=== PATIENT | female | born 1970 | race Caucasian/White ===

== ENCOUNTER 2016-10-21 02:47 | Emergency (ER) | payer MEDICAID ==
[2016-10-21] MEDS ORDERED: ONDANSETRON 4 MG/2 ML VIAL IVP ONE (02:54)
[2016-10-21] MEDS ORDERED: HYDROmorphONE/DILAUDID 1 MG/ML SYR IVP ONE (02:54)
[2016-10-21] MEDS ORDERED: NS 1,000 ML IV ONE (02:54)
[2016-10-21] MEDS ORDERED: IOPAMIDOL (ISOVUE-300) 100 ML BTL ONE (03:02)
--- NOTE | 2016-10-21 03:04 | EDPHY ---
H & P Source: Patient, EMS HPI/ROS: HPI CHIEF COMPLAINT: Fall 10 feet, suicidal ideation HISTORY OF PRESENT ILLNESS: this patient 46-year-old female significant past medical history for bipolar disorder, she [facility] by EMS after she fell off the 2nd balcony inside the alf according to staff and EMS she landed on the couch 10 feet below. After landing on the couch below she got up and ran through into the kitchen to try to find a knife. She was unable located knife to stab herself. The kitchen doors were locked at the alf. She then laid supine on the kitchen floor. Police had to make contact with her and breakdown 2 doors to get to her. She presents to the emergency room with pain all over she states she has pain from head to toe. Everywhere according to EMS palpated she had pain. Unclear LOC. Unclear if she hit the ground. Per EMS, it was reported to them that she fell 10 feet over the balcony onto a couch below. She tells me she was running from staff she was trying to find knife to stab herself. Was unable to locate a knife. Upon arrival to the emergency room I did Greet her in ER room 5. She had a head to toe trauma exam back and front. There is no visible trauma on exam but patient has tenderness to palpation down C,T, and L-spine. Tenderness palpation of the abdomen. Tender palpation the chest wall. And tender palpation down her extremities I do not see any significant trauma externally. She also tells me she has a headache. She has a GCS 15. She is alert and orient x4. Telling me she has pain all over. Police are at bedside and are placing her on M1 hold for suicidal ideation. She denies ingestion. It is noted the review of systems and history is somewhat limited due to patient's compliance with exam. At time she refuses to move extremities and then moves them. And anywhere you palpate she is tender throughout her entire body front and back. It is also reported to me, when EMS arrived they did placed a nasal trumpet in her airway as she was lying supine and not moving. She immediately pulled out the nasal trumpet. However would not respond EMS. Past Medical History: Bipolar disorder Past Surgical History: denies surgical history Social History: denies use of drugs alcohol tobacco products Family History: noncontributory ROS REVIEW OF SYSTEMS: limited due to patient's presentation of clinical state. Exam Constitutional GCS 15, alert and orient x4, in rigid cervical collar, moves everything,triage nursing summary reviewed, vital signs reviewed, awake/alert. Eyes normal conjunctivae and sclera, EOMI, PERRLA. HENT normal inspection, atraumatic, moist mucus membranes, no epistaxis, neck supple/ no meningismus, no raccoon eyes. Respiratory clear to auscultation bilaterally, normal breath sounds, no respiratory distress, no wheezing. Cardiovascular rate normal, regular rhythm, no murmur, no edema, distal pulses normal. Gastrointestinal soft, non-tender, no rebound, no guarding, normal bowel sounds, no distension, no pulsatile mass. Genitourinary no CVA tenderness. Musculoskeletal tender palpation down her anterior chest, abdomen, extremities throughout, front and back. Tender palpation down C-spine T-spine and L-spine no step-offs or crepitus, tender palpation over the CVA regions bilaterally, tender palpation over the both scapular regions. Again no signs of trauma crepitus. no midline vertebral tenderness, full range of motion, no calf swelling, no tenderness of extremities, no meningismus, good pulses, neurovascularly intact. Skin no signs of trauma on exam,pink, warm, & dry, no rash, skin atraumatic. Neurologic Moves all 4 extremities, awake, alert and oriented x 3, AAOx3, moves all 4 extremities equally, motor intact, sensory intact, CN II-XII intact , normal cerebellar, normal vision, normal speech. Psychiatric normal mood/affect. Heme/Lymph/Immune no lymphadenopathy. Differential Diagnosis: Includes but is not limited to in a particular order fall with 10 feet, multiple contusions soft tissue injury, chest wall trauma, intra-abdominal trauma, cervical spine trauma, closed head injury, thoracic or lumbar spine injury, extremity injury. Plan for this patient given that she has pain all over and is not a good historian with very limited review of systems and tender palpation diffusely front impact throughout her entire body with a fall over 10 feet I will do a CT scan of her head, cervical spine chest abdomen pelvis T and L-spine to rule out significant life-threatening trauma. She is on M1 hold by [employer]. After she is cleared from a traumatic injury. She will need mental health evaluation. Re-evaluation: 0402AM: Patient is back from CT at this time. This time she is shaking back and forth in bed. I did go and assess her, she is not having a seizure she is not postictal. When you ask her to stop shaking she does. She is conversive. She is asking for us "to kill her" "I want to " CT scan of the Head without IV contrast for trauma. The results of the study are Negative for acute traumatic injury. The study was read by Dr. Maciel I viewed the images myself on the PACS system. CT scan of the cervical spine without IV contrast. The results of the study are negative for acute traumatic in The study was read by Dr. Maciel. I viewed the images myself on the PACS system. CT scan of the chest abdomen pelvis were trauma with IV contrast The results of the study are 3.6 cm dilated aorta, no dissection or rupture, large fibroid, otherwise no acute traumatic injury The study was read by Dr. Maciel. I viewed the images myself on the PACS system. 0420AM: patient is resting comfortably at this time no acute distress. I did explain the patient when she arrived here that due to having pain throughout her entire body very severe with palpation and screaming and yelling when we palpate down her C-spine T-spine and L-spine as well as her chest wall on abdomen this is going to require CT imaging she understands that and is okay with that. She understands that she is complaining of pain throughout her entire body and fell 10 feet. Clinically on exam there is no evidence of external trauma but patient complains of severe debilitating pain throughout her entire body. Unclear if she is truly really injured or malingering. I explained that given the amount of pain she is having throughout her entire body and fall over 10 feet will need to image her which includes CT scan which includes radiation she understands this. 0421AM: She is now back from CT resting comfortably. Is notified to me by Dr. Maciel that her CT scan imaging is unremarkable for acute trauma. Was able to clear his cervical spine as her C-spine is negative she has no midline pain at this time. She is now medically cleared she is on M1 hold. She will need mental health evaluation due to being suicidal. Is also noted multiple times when I enter the room she asked me to "kill her" I explained that we will try to help her and get mental health evaluation for her. She does have a history of bipolar it is unclear what medication she takes the history is Limited. Additionally I have notified the patient that her CT scan of her chest shows a dilated aorta. She understands that this followed with her primary care doctor. Additional I did notify her that she has a very large fibroid. Follow up outpatient with OBGYN. 0433: At this time this patient is medically cleared. Do not feel that is Trauma surgery needs to see her she has unremarkable trauma exam as well as no traumatic injury seen on CT scan. Stable vital signs. 0502AM: Patient is asking for ice chips. We have provided this for her. She is asking for ibuprofen which we also provided. She ambulated well from room 5 to ER room 18. She is medically cleared except for drug screen. (Bhavin Simental) Constitutional: Initial Vital Signs Temperature (C) 36.9 C 10/21/16 02:47 Heart Rate 84 10/21/16 02:47 Respiratory Rate 18 10/21/16 02:47 Blood Pressure 124/90 H 10/21/16 02:47 O2 Sat (%) 96 10/21/16 02:47 O2 Delivery Mode Room Air Allergies/Adverse Reactions: No Known Allergies Allergy (Unverified 10/21/16 07:04) Medical Decision Making - Diagnostics Imaging Results: Imaging Impressions Abdomen CT 10/21/16 02:54 Impression: 1. CT of the abdomen and pelvis negative for acute posttraumatic sequela. 2. Large fundal mass consistent with a uterine fibroid. Further evaluation to be considered as clinically directed. 3. Lumbar spine negative for fracture with degenerative changes noted. The study was performed as an emergency on-call case and discussed by telephone with Dr. Simental at 0420 hours. The final interpretation is concordant with the original communication. Cervical Spine CT 10/21/16 02:54 Impression: Negative noncontrast CT of the head with no intracranial posttraumatic sequela identified. CT Cervical Spine Without Contrast History: Trauma. Technique: Multislice helical CT through the cervical spine without contrast from the skull base to T1. Soft tissue and bone evaluation is performed. Sagittal and coronal reconstructions are obtained and reviewed. Dose reduction techniques were utilized. Findings: Cervical alignment is anatomic. No fracture or dislocation is identified. The relationship between skull base and C1 is normal. The C1-C2 articulation is normal. The odontoid process is normal. The cervical thoracic junction is normal. Soft tissue window evaluation does not show evidence of epidural or prevertebral hematoma. Mild degenerative changes are noted with disk space loss and minimal bony hypertrophic changes extending from C3-C4 to C5-C6. Impression: 1. Negative for fracture. 2. Degenerative changes are noted. The study was performed as an emergency on-call case and discussed by telephone with Dr. Hawthorne at 0 410 hours. The final interpretation is concordant with the original communication. Chest CT 10/21/16 02:54 Impression: 1. The chest is negative for acute posttraumatic sequela. 2. Thoracic spine negative for fracture with mild multilevel degenerative changes noted. 3. See above report for additional findings. The study was performed as an emergency on-call case and discussed by telephone with Dr. Hawthorne at 0 410 hours. The final interpretation is concordant with the original communication. Head CT 10/21/16 02:54 Impression: Negative noncontrast CT of the head with no intracranial posttraumatic sequela identified. CT Cervical Spine Without Contrast History: Trauma. Technique: Multislice helical CT through the cervical spine without contrast from the skull base to T1. Soft tissue and bone evaluation is performed. Sagittal and coronal reconstructions are obtained and reviewed. Dose reduction techniques were utilized. Findings: Cervical alignment is anatomic. No fracture or dislocation is identified. The relationship between skull base and C1 is normal. The C1-C2 articulation is normal. The odontoid process is normal. The cervical thoracic junction is normal. Soft tissue window evaluation does not show evidence of epidural or prevertebral hematoma. Mild degenerative changes are noted with disk space loss and minimal bony hypertrophic changes extending from C3-C4 to C5-C6. Impression: 1. Negative for fracture. 2. Degenerative changes are noted. The study was performed as an emergency on-call case and discussed by telephone with Dr. Hawthorne at 0 410 hours. The final interpretation is concordant with the original communication. Lumbar Spine CT 10/21/16 02:55 Impression: 1. CT of the abdomen and pelvis negative for acute posttraumatic sequela. 2. Large fundal mass consistent with a uterine fibroid. Further evaluation to be considered as clinically directed. 3. Lumbar spine negative for fracture with degenerative changes noted. The study was performed as an emergency on-call case and discussed by telephone with Dr. Simental at 0420 hours. The final interpretation is concordant with the original communication. Thoracic Spine CT 10/21/16 02:55 Impression: 1. The chest is negative for acute posttraumatic sequela. 2. Thoracic spine negative for fracture with mild multilevel degenerative changes noted. 3. See above report for additional findings. The study was performed as an emergency on-call case and discussed by telephone with Dr. Hawthorne at 0 410 hours. The final interpretation is concordant with the original communication. ED Course/Re-evaluation: I assumed care of this patient at [address] Simental. Patient was seen by [facility]. She continues to respond to external stimuli and expressed suicidal ideation. She will be admitted to the hospital. During my shift she was stable and received ibuprofen for complaints of pain. Patient's care was assumed by Dr. Biggs at 4:00 p.m. We continue to await placement. (Marylu Bradshaw) Differential Diagnosis: Differential diagnosis of the patient's altered mental status and depression was considered including but not limited to functional and major depression, situational depression, hypothyroidism, medication side effect, drugs and alcohol abuse, chronic psychosis, medication noncompliance, medication side effect, depression and illicit drug use. (Marylu Bradshaw) - Data Points Laboratory Results: Laboratory Results 10/21/16 02:50 10/21/16 02:50 10/21/16 07:13 Urine Color KIMBERLYN Urine Appearance CLEAR Urine pH 5.0 (5.0-7.5) Ur Specific [place] > 1.035 H (1.002-1.030) Urine Protein 2+ H (NEGATIVE) Urine Ketones NEGATIVE (NEGATIVE) Urine Blood 3+ H (NEGATIVE) Urine Nitrate NEGATIVE (NEGATIVE) Urine Bilirubin NEGATIVE (NEGATIVE) Urine Urobilinogen NEGATIVE EU EU (0.2-1.0) Ur Leukocyte Esterase NEGATIVE (NEGATIVE) Urine RBC 3-5 /hpf H /hpf (0-3) Urine WBC 15-25 /hpf H /hpf (0-3) Ur Epithelial Cells 1+ /lpf /lpf (NONE-1+) Urine Glucose NEGATIVE (NEGATIVE) Urine Opiates Screen NEGATIVE (NEGATIVE) Urine Barbiturates NEGATIVE (NEGATIVE) Ur Phencyclidine Scrn NEGATIVE (NEGATIVE) Ur Amphetamine Screen NEGATIVE (NEGATIVE) U Benzodiazepines Scrn NEGATIVE (NEGATIVE) Urine Cocaine Screen NEGATIVE (NEGATIVE) U Marijuana (THC) Screen NON-NEGATIVE H (NEGATIVE) Medications Given: Discontinued Medications Acetaminophen (Tylenol) 650 mg PO EDNOW ONE Stop: 10/21/16 07:03 Last Admin: 10/21/16 07:03 Dose: 650 mg Hydromorphone HCl (Dilaudid) 0.5 mg IVP EDNOW ONE Stop: 10/21/16 02:55 Last Admin: 10/21/16 04:04 Dose: Not Given Sodium Chloride (Ns) 1,000 mls @ 0 mls/hr IV ONCE ONE; Wide Open PRN Reason: Protocol Stop: 10/21/16 02:55 Last Admin: 10/21/16 03:19 Dose: 1,000 mls Ibuprofen (Motrin) 600 mg PO EDNOW ONE Stop: 10/21/16 05:02 Last Admin: 10/21/16 05:09 Dose: 600 mg Ibuprofen (Motrin) 600 mg PO EDNOW ONE Stop: 10/21/16 11:29 Last Admin: 10/21/16 12:26 Dose: 600 mg Olanzapine (Zyprexa Zydis) 10 mg PO EDNOW ONE Stop: 10/21/16 05:10 Last Admin: 10/21/16 05:09 Dose: 10 mg Ondansetron HCl (Zofran) 4 mg IVP EDNOW ONE Stop: 10/21/16 02:55 Last Admin: 10/21/16 04:05 Dose: Not Given Departure - Departure Disposition: Other Psych, Not Luis Alberto Clinical Impression: Multiple contusions, Suicidal ideation Fall Qualifiers: Encounter type: initial encounter Qualified Code(s): W19.XXXA - Unspecified fall, initial encounter Condition: Fair Additional Instructions: 1. On your CT scan today did notice that your aorta is slightly enlarged 3.6 cm. Please follow up with her primary care doctor about this to have this monitored. 2. Additionally you had a very large fibroid in your uterus. She should follow up with OBGYN about this. Referrals: Patient,NotPresent [Unknown] - As per Instructions
[2016-10-21 03:06] LABS: % IMMATURE GRANULYOCYTES 0.3 % (0.0-1.1); ABSOLUTE IMMATURE GRANULOCYTES 0.03 10^3/uL (0.00-0.10); ADD DIFF? NO; ADD MORPH? NO; ADD SCAN? NO; ATYPICAL LYMPHOCYTE FLAG 10 (0-99); FRAGMENT RBC FLAG 0 (0-99); HEMATOCRIT 44.3 % (38.0-47.0); HEMOGLOBIN 15.2 g/dL (12.6-16.3); LEFT SHIFT FLG 0 (0-99); LIPEMIA HEMOLYSIS FLAG 90 (0-99); MEAN CELL HEMOGLOBIN 31.3 pg (27.9-34.1); MEAN CELL HEMOGLOBIN CONCENTR. 34.3 g/dL (32.4-36.7); MEAN CELL VOLUME 91.3 fL (81.5-99.8); PLATELET CLUMPS FLAG 10 (0-99); PLATELET COUNT 353 10^3/uL (150-400); RED BLOOD CELL COUNT 4.85 10^6/uL (4.18-5.33); RED CELL DISTRIBUTION WIDTH 14.4 % (11.5-15.2)
[2016-10-21 03:15] LABS: INR 1.02 (0.83-1.16); PROTIME(PATIENT) 13.3 SEC (12.0-15.0)
[2016-10-21 03:17] LABS: ANION GAP 13 mEq/L (8-16); CALCIUM 10.5 mg/dL (8.5-10.4); CARBON DIOXIDE 19 mEq/l (22-31); CHLORIDE 109 mEq/L (97-110); ETHANOL SERUM < 10 mg/dL (0-10); GLOMERULAR FILTRATION RATE 59; GLUCOSE 176 mg/dL (70-100); POTASSIUM 3.8 mEq/L (3.5-5.2); SODIUM 141 mEq/L (134-144)
[2016-10-21] MEDS ORDERED: IBUPROFEN 600 MG TAB PO ONE ×4 (05:01→18:25)
[2016-10-21] MEDS ORDERED: OLANZapine DISINTEGR 10 MG TAB ONE (05:07)
[2016-10-21] MEDS ORDERED: OLANZapine DISINTEGR 10 MG TAB PO ONE (05:09)
[2016-10-21] MEDS ORDERED: ACETAMINOPHEN 325 MG TAB ONE (06:46)
[2016-10-21] MEDS ORDERED: ACETAMINOPHEN 325 MG TAB PO ONE (07:02)
[2016-10-21 08:15] LABS: COLOR AMBER; LEUKOCYTE ESTERASE,URINE NEGATIVE (NEGATIVE); NITRITE,URINE NEGATIVE (NEGATIVE)
[2016-10-21 08:20] LABS: WBC,URINE 15-25 /hpf (0-3)
[2016-10-21 08:33] VITALS: RESP 16
[2016-10-21 18:25] VITALS: BP 110/78; PULSE 74; TEMP 97.2; O2SAT 96
== END 2016-10-21 18:34 ==
DX: T14.8 Other injury of unspecified body region (principal); T14.91 Suicide attempt; E86.9 Volume depletion, unspecified; W13.0XXA Fall from, out of or through balcony, initial encounter
CPT/HCPCS: 80305; G0480; J1170; J2405; Q9967

== ENCOUNTER 2016-11-04 22:32 | Emergency (ER) | payer MEDICAID ==
[2016-11-04 22:45] VITALS: TEMP 97.5
--- NOTE | 2016-11-04 23:02 | EDPHY ---
H & P Stated Complaint: fall 10/21 and injuried l leg Time Seen by Provider: 11/04/16 22:52 HPI/ROS: CHIEF COMPLAINT: Left leg pain HISTORY OF PRESENT ILLNESS: The patient is a 46-year-old homeless female who states that she tried to kill herself 2 weeks ago and jumped off of "a high place". She states that she landed on her lower back but has had mild left lower leg pain ever since. The pain is just to her proximal lateral shirley. She describes mild swelling and bruising as well. She has been ambulatory for the last 2 weeks. She denies low back pain. She states that she has been walking a lot and sleeping in the senior living. REVIEW OF SYSTEMS: Constitutional: denies: chills, fever, recent illness, recent injury EENTM: denies: blurred vision, double vision, nose congestion Respiratory: denies: cough, shortness of breath Cardiac: denies: chest pain, irregular heart rate, lightheadedness, palpitations Gastrointestinal/Abdominal: denies: abdominal pain, diarrhea, nausea, vomiting, blood streaked stools Genitourinary: denies: dysuria, frequency, hematuria, pain Musculoskeletal: See HPI Skin: denies: lesions, rash, jaundice, bruising Neurological: denies: headache, numbness, paresthesia, tingling, dizziness, weakness Hematologic/Lymphatic: denies: blood clots, easy bleeding, easy bruising Immunologic/allergic: denies: HIV/AIDS, transplant EXAM: GENERAL: Well-appearing, well-nourished and in no acute distress. HEAD: Atraumatic, normocephalic. EYES: Pupils equal round and reactive to light, extraocular movements intact, sclera anicteric, conjunctiva are normal. ENT: TMs normal, nares patent, oropharynx clear without exudates. Moist mucous membranes. NECK: Normal range of motion, supple without lymphadenopathy or JVD. LUNGS: Breath sounds clear to auscultation bilaterally and equal. No wheezes rales or rhonchi. HEART: Regular rate and rhythm without murmurs, rubs or gallops. ABDOMEN: Soft, nontender, normoactive bowel sounds. No guarding, no rebound. No masses appreciated. BACK: No CVA tenderness, no spinal tenderness, step-offs or deformities EXTREMITIES: No visible swelling to left leg. Patient points to proximal lateral shirley near the head of the fibula as the source of her pain. Minimal bruising to the anterior shirley. Normal ambulation. Normal range of motion, no pitting or edema. No clubbing or cyanosis. NEUROLOGICAL: Cranial nerves II through XII grossly intact. Normal speech, normal gait. 5/5 strength, normal movement in all extremities, normal sensation PSYCH: Normal mood, normal affect. SKIN: Warm, dry, normal turgor, no visible rashes or lesions. Source: Patient Exam Limitations: No limitations - Personal History LMP (Females 10-55): Now Current Tetanus/Diphtheria Vaccine: No Current Tetanus Diphtheria and Acellular Pertussis (TDAP): No - Medical/Surgical History Hx Asthma: Yes Hx Chronic Respiratory Disease: Yes Hx Diabetes: No Hx Cardiac Disease: No Hx Renal Disease: No Hx Cirrhosis: No Hx Alcoholism: No Hx HIV/AIDS: No Hx Splenectomy or Spleen Trauma: No Other PMH: BIPOLAR - Family History Significant Family History: No pertinent family hx - Social History Smoking Status: Current every day smoker Alcohol Use: Sober Drug Use: Marijuana Constitutional: Initial Vital Signs Temperature (C) 36.4 C 11/04/16 22:40 Heart Rate 88 11/04/16 22:40 Respiratory Rate 18 11/04/16 22:40 Blood Pressure 142/90 H 11/04/16 22:40 O2 Sat (%) 97 11/04/16 22:40 O2 Delivery Mode Room Air Allergies/Adverse Reactions: No Known Allergies Allergy (Unverified 10/21/16 07:04) Home Medications: Medication Instructions Recorded Albuterol 11/04/16 Brio 11/04/16 GABAPENTIN 11/04/16 IBUPROFEN 11/04/16 Lidocainepatch 11/04/16 OXcarbazepine 11/04/16 Singulair 11/04/16 Voltaren 11/04/16 risperiDONE 11/04/16 Medical Decision Making - Diagnostics Imaging Results: Imaging Impressions Knee X-Ray 11/04/16 22:59 Impression: Mildly comminuted fracture of the left fibular head. Imaging: Discussed imaging studies w/ screw down Radiologist (He has not had any leg pain or swelling.), I viewed and interpreted images myself Procedures: Procedure: Splint placement. A straight leg splint was applied. After application of the splint I returned and re-examined the patient. The splint was adequately immobilizing the joint and distal to the splint the patient's circulation and sensation was intact. ED Course/Re-evaluation: 11:55 p.m. Patient has proximal fibular fracture. She does have mild pain distally as well but is able to ambulate. Will image the rest of her tib-fib. Ultrasound pending. Patient is sleeping comfortably. Patient's ultrasound in the rest of her leg appear normal. She is reassured. Will place her in a straight leg splint and have her follow up with Orthopedics. Differential Diagnosis: Partial list of the Differential diagnosis considered include but were not limited to; fracture, DVT, hematoma and although unlikely based on the history and physical exam, I also considered dislocation, infection. I discussed these differential diagnoses and the plan with the patient as well as the usual and expected course. The patient understands that the diagnosis is provisional and that in medicine we are not always correct and that further workup is often warranted. Usual and customary warnings were given. All of the patient's questions were answered. The patient was instructed to return to the emergency department should the symptoms at all worsen or return, otherwise to followup with the physician as we discussed. - Data Points Medications Given: Discontinued Medications Ibuprofen (Motrin) 600 mg PO EDNOW ONE Stop: 11/05/16 01:09 Last Admin: 11/05/16 01:11 Dose: 600 mg Departure - Departure Disposition: Home, Routine, Self-Care Clinical Impression: Fracture of left proximal fibula Qualifiers: Encounter type: initial encounter Fracture type: closed Fracture morphology: unspecified fracture morphology Qualified Code(s): S82.832A - Other fracture of upper and lower end of left fibula, initial encounter for closed fracture Condition: Fair Instructions: Leg Fracture (ED) Referrals: Ethel Mejia DO [Primary Care Provider] - As per Instructions Jax Bates MD [Medical Doctor] - As per Instructions
[2016-11-05 00:21] VITALS: BP 138/81; PULSE 79; RESP 16; O2SAT 95
[2016-11-05] MEDS ORDERED: IBUPROFEN 600 MG TAB PO ONE ×2 (01:08)
== END 2016-11-05 01:24 | disposition home or self-care (01) ==
DX: S82.832A Other fracture of upper and lower end of left fibula, initial encounter for closed fracture (principal); F17.200 Nicotine dependence, unspecified, uncomplicated; W17.89XA Other fall from one level to another, initial encounter; Y93.39 Activity, other involving climbing, rappelling and jumping off
CPT/HCPCS: L1830